=== PATIENT | male | born 1975 | race Caucasian/White ===

== ENCOUNTER 2018-08-28 09:38 | Emergency (ER) | payer OTHER, SELFPAY ==
[2018-08-28 09:41] VITALS: BP 159/95; PULSE 99; RESP 16; TEMP 36.2; O2SAT 99; BMI 42.7
[2018-08-28 09:57] VITALS: BP 159/95; PULSE 99; RESP 16; TEMP 36.6; O2SAT 97
--- NOTE | 2018-08-28 10:12 | ED.DCSUM_ITS ---
- ER Visit Summary Date of Service: 08/28/18 Chief Complaint: Left groin abscess History of Present Illness: The patient is a 43 M left groin abscess last 3 days. No fever chills. He is not diabetic. He has had an abscess 1 to 2 years ago that was treated with I&D and and a biotics and did well. He states today when you change his clothes before he came in the abscess ruptured and drained on its own. Physical Examination: Middle-aged male no acute distress. Vital signs stable afebrile. HEENT exam unremarkable. Lungs clear to auscultation bilaterally. Heart regular rate and rhythm. Abdomen soft nontender. Remedies moves all 4. Neurovascular intact. Patient has a small abscess left inguinal area. It is spontaneously ruptured there is about a 1 cm opening. I was able to express about 2 to 3 cc of pus. It is now flat and no longer fluctuant at all. There is minimal tenderness. No cellulitis. At this time this does not need to be I&D because it spontaneously drained. I discussed all this with the patient. Test Results: None Emergency Department Course and Treatment: Spontaneously drained left groin abscess. Treatment Plan: Bactrim twice daily for 10 days. Follow-up with his doctor as needed. Return if worse. Warm soaks. Motrin for pain. Disposition: Discharge Impression: Left groin abscess spontaneously drained ( No I and D) This note was generated with [employer] dictation software. It may contain incorrect words, spelling, and punctuation that were not noted in review of the chart prior to signing ED Disposition - Plan for ED Patient: Referrals: Ryan Kwan MD [Primary Care Provider] -
--- NOTE | 2018-08-28 10:15 | ED.DEP ---
ED Disposition - Plan for ED Patient: Disposition: Home or Assisted Living Instructions: ABSCESS, Antiobiotic Treatment Only Prescriptions: Sulfamethoxazole/Trimethoprim [Bactrim Ds Tablet] 1 ea PO BID #20 tab Prescription Printed Referrals: Ryan Kwan MD [Primary Care Provider] - As Needed Additional Instructions: Tylenol and Motrin for pain. Warm soaks, hot shower and warm compresses to the area. Bactrim 1 pill twice a day for 10 days. Return if worse or follow-up if not improving.
[2018-08-28 10:21] VITALS: PULSE 94; RESP 18; O2SAT 97
== END 2018-08-28 10:22 | disposition home or self-care (01) ==
PROVIDERS: Emergency Provider Emergency Medicine; Family Provider Family Medicine; PCP Family Medicine
DX: L02.214 Cutaneous abscess of groin (principal); I10 Essential (primary) hypertension; F41.9 Anxiety disorder, unspecified; Z72.0 Tobacco use; Z79.899 Other long term (current) drug therapy
CPT/HCPCS: 99282

== ENCOUNTER 2018-09-19 00:12 | Emergency (ER) | payer OTHER, SELFPAY ==
[2018-09-19 00:14] VITALS: BP 165/105; PULSE 91; RESP 16; TEMP 37; O2SAT 96; BMI 44.3
--- NOTE | 2018-09-19 00:29 | RAD_ITS ---
HISTORY: NKIC/O ENTIRE RT ANKLE PAIN X 2 DAYS COMPARISON: None FINDINGS: # of images incl. paperwork: 3 XR Ankle Min 3 Views : No fracture or osseous abnormality. The ankle mortise is intact. Soft tissue swelling is present about the right ankle. RAD/Ankle min 3 Views IMPRESSION: Normal left/right ankle. at 0101 Reported and signed by: Lior Owens MD Electronically Signed: Lior Owens MD at 1:00 EDT Tel , Service support ,
--- NOTE | 2018-09-19 00:29 | ED.VISSUMM ---
- ER Visit Summary Date of Service: 09/19/18 Chief Complaint: Right ankle pain History of Present Illness: The patient is a 43 M who presents with right ankle pain. This began about 2 days ago. He states it feels like he sprained his ankle however he has no history of any fall or injury. He denies paresthesias weakness loss of function. Pain is aching in nature and waxes and wanes. He took ibuprofen at about 8 PM without significant relief. He has very slight swelling. No redness. No fevers. He otherwise recently has been well. No history of gout. Physical Examination: Afebrile blood pressure 165/105 vitals otherwise normal No distress resting comfortably There is mild soft tissue swelling of the right ankle it is not erythematous it is not hot to the touch she has active full range of motion he has good short arc range of motion without any pain he has brisk capillary refill normal sensation light touch Test Results: Right ankle x-ray normal Emergency Department Course and Treatment: Patient presents with acute atraumatic right ankle pain. This may be due to early or mild gout.. He was given prescriptions for [place] and was also placed on a prednisone burst. I am not concerned for septic arthritis given his presentation. He was advised on signs and symptoms to monitor for and understands to return for new or worsening symptoms. The patient was discharged. Treatment Plan: [] Disposition: Discharge Impression: Right ankle pain This note was generated with [employer] dictation software. It may contain incorrect words, spelling, and punctuation that were not noted in review of the chart prior to signing ED Disposition - Plan for ED Patient: Referrals: Ryan Kwan MD [Primary Care Provider] -
--- NOTE | 2018-09-19 01:20 | DCINST.ED_ITS ---
ED Disposition - Plan for ED Patient: Instructions: What Is Gout? Prescriptions: Hydrocodone Bitart/Apap 5-325 [[place] 5MG-325MG] 1 tab PO Q6H PRN PRN 3 Days #10 tab PRN Reason: Pain Prescription Printed predniSONE tablet 60 mg PO DAILY #15 tab Prescription Printed Referrals: Ryan Kwan MD [Primary Care Provider] -
--- NOTE | 2018-09-19 01:20 | ED.DEP ---
ED Disposition - Plan for ED Patient: Instructions: What Is Gout? Prescriptions: Hydrocodone Bitart/Apap 5-325 [[place] 5MG-325MG] 1 tab PO Q6H PRN PRN 3 Days #10 tab PRN Reason: Pain Prescription Printed predniSONE tablet 60 mg PO DAILY #15 tab Prescription Printed Referrals: yRan Kwan MD [Primary Care Provider] -
== END 2018-09-19 01:28 | disposition home or self-care (01) ==
LOC: ED 00:41
PROVIDERS: Emergency Provider Emergency Medicine; Family Provider Family Medicine; PCP Family Medicine
DX: M25.571 Pain in right ankle and joints of right foot (principal); I10 Essential (primary) hypertension; F32.9 Major depressive disorder, single episode, unspecified; Z72.0 Tobacco use; Z79.899 Other long term (current) drug therapy
CPT/HCPCS: 73610; 99282

== ENCOUNTER 2022-07-18 14:49 | Emergency (ER) | payer OTHER, SELFPAY ==
[2022-07-18 14:52] VITALS: BP 152/80; PULSE 111; RESP 20; TEMP 36.6; O2SAT 97; BMI 42.9
--- NOTE | 2022-07-18 15:09 | EKG12_ITS ---
Test Reason : CP Blood Pressure : / mmHG Vent. Rate : 103 BPM Atrial Rate : 103 BPM P-R Int : 152 ms QRS Dur : 088 ms QT Int : 338 ms P-R-T Axes : 042 029 017 degrees QTc Int : 442 ms Sinus tachycardia Junctional ST depression, probably normal Borderline ECG Confirmed by DENIS GOLD, NEVAEH ([id number]), photographic editor TANVIR COHEN ([id number]) on 07/19/2022 9:50:25 AM Referred By: ALLISON Confirmed By:NEVAEH BARRIOS MD
--- NOTE | 2022-07-18 15:10 | ED.VIS.CHEST ---
HPI History of Present Illness Chief Complaint: Chest Other Informant: patient Narrative Narrative: Presents with right-sided chest pain. Patient did have a fall back prior to [place] he hurt the right side of his chest but he thought he had pretty much healed from that. About 3 weeks ago he sneezed very hard and he got sharp pain right in the right anterior lateral chest. He points below and lateral to the nipple area. He then also started coughing hard after that. This caused more pain. For 5 days later he had some bruising that developed in the abdomen but never in the chest. But he states the abdomen in the area that bruised never hurt at all. That is getting markedly better. But he notes that he still has pain in the right anterior chest wall when he takes a deep breath. He states he does not think he is really short of breath is just hard to take a deep breath due to discomfort. He has been active. He even cut the grass yesterday without problems. He has had no hemoptysis. No fevers or chills. No sputum. He is not having exertional symptoms. Patient has no family history of heart disease, smoking diabetes. He might have some borderline cholesterol but has never had treatment recommended. He is on lisinopril for high blood pressure. He has had no recent travel surgery immobilization personal or family history of DVT or PE that he knows of. He states other than the area in the right chest wall he does not feel sick. He overall feels well. He is just concerned because after 3 weeks although it is improving its not gone. [facility] Medical History Hypertension Home Medications lisinopril 10 mg tablet 10 mg PO DAILY 08/28/18 [History Last Taken Unknown] benzonatate 100 mg capsule 200 mg PO TID PRN PRN Cough #15 CAPSULES 07/18/22 [Rx Last Taken Unknown] hydrocodone-acetaminophen 5-325mg 5mg-325mg 1 tab PO Q6H PRN PRN Pain 3 days #10 TABLETS 07/18/22 [Rx Last Taken Unknown] Allergy/AdvReac Type Severity Reaction Status Date / Time No Known Allergies Allergy Verified 07/18/22 14:53 Social History Smoking Status: Current every day smoker tobacco type: cigarettes ROS ROS ED ROS Narrative A complete review of systems was performed and is negative except as documented in the history of present illness. Some specific details below. Constitutional: No recent fevers or chills. No malaise. Does not feel generalized illness. EYE: No discharge, visual complaints, or pain. ENT: No difficulty swallowing. No swelling. No pain. No reflux symptoms. He is eating normally and does not have problems or symptoms with this. CV: See history of present illness. Respiratory: See history of present illness. GI: No abdominal pain. No nausea vomiting diarrhea. No blood in stool. : No frequency dysuria or hematuria. Musculoskeletal: No recent trauma. No pains. No swelling. Skin: No rash other than the slight bruising on the abdomen which is going away now. He is not on any anticoagulation. He has no other areas of bleeding or bruising. Nondiaphoretic. Neuro: No weakness or numbness. Endocrine: No polyuria or polydipsia. EXAM Physical Exam Narrative Exam Narrative: CONSTITUTIONAL: Patient is nontoxic in appearance. The patient looks comfortable. Work of breathing looks normal. There is a normal conversation. HEENT: No notable trauma. Mucous membranes moist. No intraoral petechiae. No sinus tenderness. No indication of pain with swallowing. EYES: No conjunctival injection. No proptosis. No pallor. NECK:No JVD. No stridor. CARDIOVASCULAR: Regular rate. Regular rhythm. No notable murmur. No JVD. Lungs are not muffled. Pulses are equal x4 extremities. RESPIRATORY: No respiratory distress. Breathing is unlabored. No wheezes. No rhonchi. No rales. If he takes a very deep breath he has mild discomfort but it does not actually cause cessation of inspiration. He does have some mild chest wall tenderness proximally fifth or sixth rib area anteriorly at about the anterior axillary line. But there is no bruising or swelling or clicking felt in this area or seen at this time. GASTROINTESTINAL: Not distended. Bowel sounds are normal. No tenderness. No guarding. No rebound. No palpable mass. No bruit is heard. Patient does have some very mild bruising mostly low in the abdomen below the umbilicus and a little bit more on the right side. But its not firm or swollen or tender. He has a mild umbilical hernia that is not tender and easily reduced. Overall his abdomen is quite benign other than this visual change which he states is improving. GENITOURINARY: No tenderness over the bladder. No CVA tenderness. MUSCULOSKELETAL: Atraumatic. No peripheral edema. No cord. No tenderness along the deep venous system. No asymmetry. No distended veins. NEUROLOGICAL: Patient is alert and appropriate. No focal deficit noted. SKIN: No noted rashes. No diaphoresis. PSYCHIATRIC: Patient is calm. Mood is appropriate. Const Vital Signs: 07/18/22 14:52 07/18/22 14:59 07/18/22 15:24 Temperature 97.8 F Temperature Source Temporal Pulse Rate 111 H Respiratory Rate 20 H Respiratory Effort Normal Non-Labored Blood Pressure 152/80 H Blood Pressure Mean 104 Pulse Ox 97 96 Oxygen Delivery Method Room Air Room Air 07/18/22 17:02 Temperature Temperature Source Pulse Rate 106 H Respiratory Rate 20 H Respiratory Effort Blood Pressure Blood Pressure Mean Pulse Ox 93 Oxygen Delivery Method MDM MDM MDM Narrative Medical decision making narrative: Patient CBC shows slightly high white count but normal hemoglobin and platelets. Electrolytes show no marked abnormalities. Troponin is negative. D-dimer was elevated therefore CT scan with angiogram was ordered. My independent interpretation of the CT angiogram does not show any obvious PE but there is quite a large effusion on the right. Final reading reads no PE but he does have the effusion with compressive atelectasis he also has subacute rib fractures and they note a an adrenal mass 2.9 cm I discussed the case with basketball player, Dr. Webster. We walked this patient and he is not hypoxic. Considering he has stable vitals, not hypoxic, not anemic we can get him home. The suspicion is that this is likely hemothorax from his sneeze several weeks ago. He has bruising that is now resolving. If this effusion does not improve it may need to be tapped but does not need to be done acutely. He will follow-up with Dr. Webster in the office. I also talked to the patient about the adrenal mass that was found incidentally and explained that he needs to follow-up with his primary physician about this also. Lab Data Attestation: I reviewed the patient's lab results. Labs: Laboratory Results - last 24 hr 07/18/22 07/18/22 07/18/22 15:25 15:25 15:25 WBC 15.2 H RBC 4.40 L Hgb 14.6 Hct 42.7 MCV 97.0 H MCH 33.2 H MCHC 34.2 RDW Std Deviation 42.8 RDW Coeff of Lala 11.9 Plt Count 330 MPV 8.7 Immature Gran % (Auto) 0.500 Neut % (Auto) 83.7 H Lymph % (Auto) 10.7 L [place] % (Auto) 4.6 Eos % (Auto) 0.2 Baso % (Auto) 0.3 Absolute Neuts (auto) 12.7 H Absolute Lymphs (auto) 1.62 Nucleated RBC % 0 D-Dimer Quant (PE/DVT) 1.35 H* Sodium 136 Potassium 4.0 Chloride 101 Carbon Dioxide 24.0 Anion Gap 11 BUN 14 Creatinine 0.86 Estim Creat Clear Calc 97.88 Est GFR (MDRD) Af Amer 124 Est GFR (MDRD) Non-Af 103 BUN/Creatinine Ratio 16.4 Glucose 171 H Calcium 9.2 Troponin I High Sens 8 Radiography Diagnostic Testing: Clinical Impression(s) from Imaging Studies Chest CTA 07/18/22 16:05 IMPRESSION: Normal CTA chest examination, without a demonstrated pulmonary embolism or arterial dissection. Prominent right pleural effusion and significant compressive atelectasis of the right lung. Subacute right rib fractures. Right adrenal mass-CT of the abdomen and pelvis with contrast recommended. Electronically Signed: Adis Kelly MD at 17:18 EDT , EKG Initial EKG: Comments: My independent interpretation the patient's EKG done for chest pain shows sinus rhythm with tachycardic rate at 103. No ectopy noted. There is some baseline variation but there is also some diffuse nonspecific ST and T wave changes. No convincing evidence of infarct or ischemia. MN interval, QRS duration and QTc are normal. I reviewed our charting system and was not able to find an old for comparison. Discharge Plan Triage Chief Complaint: Chest Other Other Complaint: Chest Pain ED Provider: Willi Butt Dx/Rx/DC Orders Clinical Impression: Fracture of rib of right side, Hemothorax on right, Mass of right adrenal gland Instructions: ED Rib Fracture, ED Pleural Effusion Prescriptions: New hydrocodone-acetaminophen [hydrocodone-acetaminophen] 5-325 mg tablet 1 tab PO Q6H PRN PRN (Reason: Pain) 3 Days Qty: 10 0RF benzonatate [benzonatate] 100 mg capsule 200 mg PO TID PRN PRN (Reason: Cough) Qty: 15 0RF No Action lisinopril 10 MG tablet 10 mg PO DAILY Primary Care Provider: Ryan Kwan Referrals: Jimmy Webster DO [Med Staff - Active Staff] - 3-5 Days Ryan Kwan MD [Primary Care Provider] - As soon as possible (Talk to your doctor about the adrenal mass on the right) Activity Restrictions/Additional Instructions: Follow-up with your family doctor about the small mass seen on your right adrenal gland. Disposition Disposition: Home, Self Care
--- NOTE | 2022-07-18 15:17 | ED.RN ---
NO OLD EKGS LISTED.
[2022-07-18 15:24] VITALS: O2SAT 96
[2022-07-18] MEDS: Aspirin 81 MG TAB.CHEW 324 MG PO (15:31)
[2022-07-18 15:47] LABS: Absolute Lymphocyte Count 1.62 X10^3/uL (0.83-4.51); Absolute Neutrophil Count 12.7 X10^3/uL (2.0-7.7); Basophil# 0.04 X10^3/uL; Basophil% 0.3 % (0-1); Eosinophil# 0.03 X10^3/uL; Eosinophils% 0.2 % (0-5); Hematocrit 42.7 % (40-54); Hemoglobin 14.6 g/dL (13.0-16.5); Lymphocyte # 1.62 X10^3/ul (0.83-4.51); Lymphocyte % 10.7 % (19-41); Mean Corp Hgb Conc 34.2 g/dL (32-36); Mean Corpuscular Hgb 33.2 pg (27.0-32.0); Mean Platelet Vol. 8.7 fl (6.2-12.0); Monocyte% 4.6 % (0-10); NRBC Flagged by Analyzer 0 % (0-5); Neutrophil # 12.73 X10^3/uL (2.7-7.7); Neutrophil % 83.7 % (47-70); Platelet Count 330 K/mm3 (150-450); RBC Distribution Width CV 11.9 % (11.6-14.6); RBC Distribution Width SD 42.8 fl (35.1-43.9); White Blood Count 15.2 K/mm3 (4.4-11.0)
[2022-07-18 16:02] LABS: Anion Gap 11 (5-15); BUN 14 mg/dL (7-18); BUN/Creat Ratio 16.4 RATIO (10-20); Calcium,Total 9.2 mg/dL (8.5-10.1); Chloride 101 mmol/L (98-107); Creatinine, Serum 0.86 mg/dL (0.70-1.30); EST Glomerular Filtration Rate 103 mL/min (>60); Est Glom Filt Rate - Afr Amer 124 mL/min (>60); Estimated Creatinine Clearance 97.88 ml/min; Glucose 171 mg/dL (74-106); Sodium Level 136 mmol/L (136-145); Troponin-I HS 8 pg/mL (3.0-78.0)
[2022-07-18 16:04] LABS: D-Dimer Quantitative (DVT/PE) 1.35 FEU/ug/m (0.27-0.49)
--- NOTE | 2022-07-18 16:05 | CT_ITS ---
STUDY: CTA CHEST REASON FOR EXAM: Male, 47 years old. Pain. Elevated d-dimer. Hypertension. RADIATION DOSAGE (If Supplied By Facility): CTDIvol = ( 18.60 ) mGy, DLP = ( 606.24 ) mGycm TECHNIQUE: The examination was performed with the intravenous administration of IV 100mL [id number]-[id number]. Post-processing of the angiographic images was performed, with multiplanar reformation and 3D reconstruction. Individualized dose optimization techniques were used for this CT. COMPARISON: None. FINDINGS: Normal enhancement of the main pulmonary artery and right and left pulmonary arteries. Normal enhancement of the bilateral peripheral pulmonary arteries. There is no demonstrated pulmonary embolism. Normal thoracic aorta and visualized great vessels. There is no demonstrated aortic dissection. Normal heart and pericardium. Normal mediastinum. Normal hilar regions. Normal visualized trachea and bronchi. The lungs are well expanded. No pneumothorax. Moderate right pleural effusion. Prominent compressive atelectasis of the right lower lobe. Lesser degrees of atelectasis of the right upper lobe and right middle lobe. Superimposed pneumonia is not excluded. On the left, no effusions. Left lung is clear. Subacute rib fractures are seen of the right sixth and seventh ribs. In the visualized upper abdomen, there is a 2.9 [address] right [address] mass. CT/CTA Chest W/WO Contrast IMPRESSION: Normal CTA chest examination, without a demonstrated pulmonary embolism or arterial dissection. Prominent right pleural effusion and significant compressive atelectasis of the right lung. Subacute right rib fractures. Right adrenal mass-CT of the abdomen and pelvis with contrast recommended. Electronically Signed: Adis Kelly MD at 17:18 EDT ,
[2022-07-18 17:02] VITALS: PULSE 106; RESP 20; O2SAT 93
[2022-07-18 17:36] VITALS: O2SAT 96
== END 2022-07-18 18:35 | disposition home or self-care (01) ==
PROVIDERS: Emergency Provider Emergency Medicine; PCP Family Medicine; Visit Provider Emergency Medicine
DX: S22.41XA Multiple fractures of ribs, right side, initial encounter for closed fracture (principal); E27.9 Disorder of adrenal gland, unspecified; S27.1XXA Traumatic hemothorax, initial encounter; F17.210 Nicotine dependence, cigarettes, uncomplicated; J98.11 Atelectasis; W19.XXXA Unspecified fall, initial encounter; I10 Essential (primary) hypertension
CPT/HCPCS: 71275; 80048; 84484; 85025; 85379; 93005; 96360; 99284; J7040; Q9967; A4216